=== PATIENT | male | born 1995 | race Caucasian/White ===

== ENCOUNTER 2021-11-03 22:38 | Emergency (ER) | payer MEDICAID ==
[~2021-11-03] VITALS: Ht 185.4 cm; Wt 81.6 kg
[2021-11-03 22:47] VITALS: BP_SYST 122
[2021-11-03] MEDS ORDERED: LORazepam 2 MG/ML VIAL IM ONE (23:00)
[2021-11-03] MEDS ORDERED: DIPHENHYDRAMINE INJ 50 MG/ML VIAL IM ONE (23:00)
== END 2021-11-03 23:16 | disposition home or self-care (01) ==
LOC: SED 22:38
DX: G47.00 Insomnia, unspecified (principal); F11.20 Opioid dependence, uncomplicated
CPT/HCPCS: 96372; 99284; J1200; J2060

== ENCOUNTER 2022-08-01 10:13 | Emergency (ER) | payer MEDICAID ==
[~2022-08-01] VITALS: Ht 185.4 cm; Wt 83.9 kg
[2022-08-01 10:41] VITALS: BP_SYST 131
[2022-08-01] MEDS ORDERED: NACL 0.9% 1,000 ML IV ONE (11:30)
[2022-08-01] MEDS ORDERED: KETOROLAC TROMETHAMINE 30 MG VIAL IVP ONE (11:30)
[2022-08-01] MEDS ORDERED: ONDANSETRON HCL 4 MG/2 ML VIAL IVP ONE (11:30)
[2022-08-01 12:01] LABS: BASOPHILS # (AUTO) 0.1 K/uL (0.0-0.2); BASOPHILS % (AUTO) 0.4 % (0.0-2.0); EOSINOPHILS # (AUTO) 0.2 K/uL (0.0-0.4); EOSINOPHILS % (AUTO) 1.4 % (0.0-4.0); HEMATOCRIT 46.1 % (36-54); HEMOGLOBIN 15.8 g/dL (14.0-18.0); LYMPHOCYTES # (AUTO) 2.1 K/uL (1.0-5.5); LYMPHOCYTES % (AUTO) 17.1 % (20.5-51.5); MEAN CORPUSCULAR HEMOGLOBIN 29 pg (27-31); MEAN CORPUSCULAR HGB CONC 34 % (32-36); MEAN CORPUSCULAR VOLUME 85 fL (79.0-98.0); MONOCYTES # (AUTO) 0.9 K/uL (0.0-1.0); MONOCYTES % (AUTO) 7.3 % (1.7-9.3); NEUTROPHILS # (AUTO) 9.1 K/uL (1.8-7.7); NEUTROPHILS % (AUTO) 73.8 % (40.0-70.0); PLATELET COUNT (AUTO) 282 K/uL (130-430); RED BLOOD CELL COUNT(AUTO) 5.45 MIL/uL (4.2-6.2); RED CELL DISTRIBUTION WIDTH 12.9 % (9.0-15.0); WHITE BLOOD COUNT (AUTO) 12.3 K/uL (4.8-10.8)
[2022-08-01 12:16] LABS: CALCIUM 9.7 mg/dL (8.4-11.0); CREATININE 1.05 mg/dL (0.55-1.30)
[2022-08-01 12:20] LABS: ALBUMIN 4.4 g/dL (3.4-4.8); TOTAL BILIRUBIN 1.2 mg/dL (0.0-1.0)
[2022-08-01 13:30] VITALS: BP_SYST 129
--- NOTE | 2022-08-01 13:30 | NUR ---
RECEIVED PT IN BED CH1 FROM HOME WITH CC OF ABDOMINAL PAIN. PT IS STABLE, NAD, VSS, AAOx3, AWAITING ADDITIONAL ASSESSMENTS WITH PLAN OF CARE.
--- NOTE | 2022-08-01 13:41 | NUR ---
ER DR. HERNANDEZ EXAMINING PT
--- NOTE | 2022-08-01 13:41 | NUR ---
Patient to ER CH1 to [facility] for evaluation. Side rails up. Report given to MIREILLE CABA.
[2022-08-01] MEDS ORDERED: PANTOPRAZOLE SODIUM 40 MG/VIAL (PROTONIX) IVP ONE (13:45)
[2022-08-01] MEDS ORDERED: KETOROLAC TROMETHAMINE 30 MG VIAL ONE (13:58)
[2022-08-01] MEDS ORDERED: ONDANSETRON HCL 4 MG/2 ML VIAL ONE (13:58)
[2022-08-01 14:07] LABS: BILIRUBIN,URINE NEGATIVE (NEGATIVE); BLOOD, URINE NEGATIVE (NEGATIVE); CLARITY/URINE CLEAR (CLEAR); COLOR,URINE YELLOW (YELLOW); GLUCOSE,URINE NEGATIVE (NEGATIVE); KETONES,URINE NEGATIVE (NEGATIVE); LEUKOCYTE ESTERASE ,URINE NEGATIVE (NEGATIVE); NITRITE, URINE NEGATIVE (NEGATIVE); PROTEIN URINE NEGATIVE (NEGATIVE); UROBILINOGEN,URINE 0.2 (0.2-1.0)
[2022-08-01] MEDS ORDERED: MAG HYDROX/AL HYDROX/SIMETH 30 ML, DICYCLOMINE HCL 20 MG, LIDOCAINE VISCOUS 2% 15ML (PO... PO ONE ×3 (14:45)
[2022-08-01] MEDS ORDERED: ONDA-8 TL (15:42)
[2022-08-01] MEDS ORDERED: PEPTAB PO (15:42)
[2022-08-01] MEDS ORDERED: SUCR1TAB2 PO (15:42)
[2022-08-01] MEDS ORDERED: FAMO40TA71 PO (15:42)
--- NOTE | 2022-08-01 16:00 | NUR ---
Patient given written and verbal discharge instructions and verbalizes understanding. ER MD discussed with patient the results and treatment provided. Patient in stable condition. ID arm band removed. IV catheter removed intact and dressing applied, no active bleeding. Rx of given. Patient educated on pain management and to follow up with PMD. Opportunity for questions provided and answered. Medication side effect fact sheet provided.
== END 2022-08-01 16:15 | disposition home or self-care (01) ==
LOC: SED 10:13
DX: K29.80 Duodenitis without bleeding (principal); R10.84 Generalized abdominal pain; R11.2 Nausea with vomiting, unspecified; Z79.899 Other long term (current) drug therapy
CPT/HCPCS: 99284; 74176; 96374; 96375; 96361; 80053; 83690; 85025; 36415; 76376; 81003; J2001; J1885; J2405; C9113; J7030